=== PATIENT | female | born 1975 | race African-American/Black ===

== ENCOUNTER 2019-08-15 16:21 | Emergency (ER) | payer OTHER ==
[~2019-08-15] VITALS: Ht 170.2 cm; Wt 127.0 kg
[2019-08-15 17:04] LABS: INFLUENZA A ANTIGEN Negative (Negative); INFLUENZA B ANTIGEN Negative (Negative)
[2019-08-15] MEDS ORDERED: TESSALON PERLE100 MG PO (17:53)
[2019-08-15] MEDS ORDERED: MUCINEX600 MG PO (17:53)
[2019-08-15] MEDS ORDERED: MEDROLDOSEPACK PO (17:53)
[2019-08-15 18:04] VITALS: BP 170/95
== END 2019-08-15 18:06 | disposition home or self-care (01) ==
LOC: M.ERS 16:21
PROVIDERS: Nurse Practitioner Family
DX: J20.9 Acute bronchitis, unspecified (principal); J06.9 Acute upper respiratory infection, unspecified; Z88.5 Allergy status to narcotic agent